=== PATIENT | female | born 1955 | race American Indian/Alaskan Native ===

== ENCOUNTER 2016-09-24 18:14 | Emergency (ER) | payer SELFPAY ==
[2016-09-24 23:49] VITALS: BP 125/85
--- NOTE | 2016-09-25 00:24 | Emergency Department Report ---
ED General Adult HPI - General Chief complaint: Back Pain/Injury Stated complaint: FALL/BACK PAIN Time Seen by Provider: 09/25/16 00:09 Source: patient Mode of arrival: Ambulatory Limitations: No Limitations - History of Present Illness Initial comments: Patient comes into the ER today with complaints of left buttocks pain after falling in the kitchen yesterday. Patient states that there was some chicken on the counter and she went to sit down and ended up falling on her buttocks. Patient was able to get up on her own. Patient still able to walk and bear weight to left hip but states that it is uncomfortable. Patient states that she does not believe anything is broken and denies any back pain or abdominal pain. Patient asking for something to help with the pain. Severity scale (0 -10): 6 - Related Data Home Medications Medication Instructions Recorded Confirmed Last Taken Metformin HCl [Glucophage] 1,000 mg PO BID 08/27/13 05/19/15 04/02/15 glipiZIDE [glipiZIDE ER] 5 mg PO DAILY 08/27/13 05/19/15 04/02/15 amLODIPine [Norvasc] 5 mg PO DAILY 05/15/15 05/19/15 Unknown Previous Rx's Medication Instructions Recorded Last Taken Type HYDROcodone/APAP 5-325 [Lane 1 each PO Q6HR PRN #7 tablet 05/19/15 Unknown Rx 5/325] hydrOXYzine HCL [Atarax] 25 mg PO Q6HR PRN #20 tablet 11/02/15 Unknown Rx Orphenadrine Citrate 100 mg PO BID #20 tablet.er 09/25/16 Unknown Rx traMADol [Ultram] 50 mg PO Q6HR PRN #20 tablet 09/25/16 Unknown Rx Allergies Allergy/AdvReac Type Severity Reaction Status Date / Time No Known Allergies Allergy Verified 09/24/16 18:43 ED Review of Systems ROS: Stated complaint: FALL/BACK PAIN Other details as noted in HPI Constitutional: denies: chills, fever Eyes: denies: eye pain, eye discharge, vision change ENT: denies: ear pain, throat pain Respiratory: denies: cough, shortness of breath, wheezing Cardiovascular: denies: chest pain, palpitations Endocrine: no symptoms reported Gastrointestinal: denies: abdominal pain, nausea, diarrhea Genitourinary: denies: urgency, dysuria, discharge Musculoskeletal: other (left buttocks pain). denies: back pain, joint swelling , arthralgia Skin: denies: rash, lesions Neurological: denies: headache, weakness, paresthesias Psychiatric: denies: anxiety, depression Hematological/Lymphatic: denies: easy bleeding, easy bruising ED Past Medical Hx - Past Medical History Previous Medical History?: Yes Hx Hypertension: No Hx Diabetes: Yes Additional medical history: Chronic back pain. ECZEMA - Social History Smoking Status: Never Smoker Substance Use Type: None - Medications Home Medications: Home Medications Medication Instructions Recorded Confirmed Last Taken Type Metformin HCl [Glucophage] 1,000 mg PO BID 08/27/13 05/19/15 04/02/15 History glipiZIDE [glipiZIDE ER] 5 mg PO DAILY 08/27/13 05/19/15 04/02/15 History amLODIPine [Norvasc] 5 mg PO DAILY 05/15/15 05/19/15 Unknown History HYDROcodone/APAP 5-325 [Lane 1 each PO Q6HR PRN #7 tablet 05/19/15 Unknown Rx 5/325] hydrOXYzine HCL [Atarax] 25 mg PO Q6HR PRN #20 tablet 11/02/15 Unknown Rx Orphenadrine Citrate 100 mg PO BID #20 tablet.er 09/25/16 Unknown Rx traMADol [Ultram] 50 mg PO Q6HR PRN #20 tablet 09/25/16 Unknown Rx ED Physical Exam - General Limitations: No Limitations General appearance: alert, in no apparent distress - Head Head exam: Present: atraumatic, normocephalic - Eye Eye exam: Present: normal appearance - ENT ENT exam: Present: mucous membranes moist - Neck Neck exam: Present: normal inspection - Respiratory Respiratory exam: Present: normal lung sounds bilaterally. Absent: respiratory distress - Cardiovascular Cardiovascular Exam: Present: regular rate, normal rhythm. Absent: systolic murmur, diastolic murmur, rubs, gallop - GI/Abdominal GI/Abdominal exam: Present: soft, normal bowel sounds. Absent: distended, tenderness, guarding - Extremities Exam Extremities exam: Present: normal inspection, full ROM (normal strength and normal range of motion to left hip in all directions.), tenderness (mild tenderness noted in the left posterior buttocks), normal capillary refill. Absent: pedal edema, joint swelling, calf tenderness - Back Exam Back exam: Present: normal inspection, full ROM. Absent: tenderness, muscle spasm, paraspinal tenderness, vertebral tenderness - Neurological Exam Neurological exam: Present: alert, oriented X3, CN II-XII intact, normal gait, reflexes normal. Absent: motor sensory deficit - Psychiatric Psychiatric exam: Present: normal affect, normal mood - Skin Skin exam: Present: warm, dry, intact, normal color. Absent: rash ED Course Vital Signs 09/24/16 09/24/16 18:43 23:48 Temperature 98.5 F 98.5 F Pulse Rate 72 67 Respiratory 20 18 Rate Blood Pressure 133/88 Blood Pressure 125/85 [Left] O2 Sat by Pulse 97 Oximetry ED Medical Decision Making - Medical Decision Making Patient is nontoxic and hemodynamically stable. Patient has normal examination with regards to range of motion of her hip and I'm very low suspicion for any hip fracture. Patient's tenderness seems to be more soft tissue in nature as she has no difficulty rising from sitting position and applying weight to left hip. I'll prescribe patient some mild pain medication for symptomatic relief and refer her to orthopedics for further evaluation if symptoms fail to resolve or worsen. Patient is in agreement with treatment plan a patient stable for discharge. Critical care attestation.: If time is entered above; I have spent that time in minutes in the direct care of this critically ill patient, excluding procedure time. ED Disposition Clinical Impression: Contusion of buttock, Contusion of left hip Disposition: TO HOME OR SELFCARE Is pt being admited?: No Does the pt Need Aspirin: No Condition: Good Instructions: Contusion in Adults (ED) Prescriptions: Orphenadrine Citrate 100 mg PO BID #20 tablet.er traMADol [Ultram] 50 mg PO Q6HR PRN #20 tablet PRN Reason: Pain Referrals: PRIMARY CARE, [Primary Care Provider] - 3-5 Days TARA MILLER MD [Staff Physician] - 3-5 Days Time of Disposition: 00:24
== END 2016-09-25 00:30 | disposition home or self-care (01) ==
LOC: ED 18:14
DX: S30.0XXA Contusion of lower back and pelvis, initial encounter (principal); S70.02XA Contusion of left hip, initial encounter; I10 Essential (primary) hypertension; E11.9 Type 2 diabetes mellitus without complications; W18.30XA Fall on same level, unspecified, initial encounter; Y93.9 Activity, unspecified; Y92.9 Unspecified place or not applicable; Y99.9 Unspecified external cause status
CPT/HCPCS: 82962; 99282

== ENCOUNTER 2016-11-09 12:59 | Outpatient (CLI) | payer SELFPAY ==
--- NOTE | 2016-11-09 15:23 | XRay Report ---
LEFT TOES, 2 views: History: Injury 2 weeks ago. There is normal bone mineralization. An oblique nondisplaced fracture is identified in the proximal phalanx of the great toe. This appears to be acute. There is no convincing calcified callus on today's exam. The remaining left toes are intact. No erosive joint pathology. IMPRESSION: Traumatic fracture, proximal phalanx, great toe.
== END 2016-11-09 13:00 | disposition home or self-care (01) ==
LOC: XRAY 12:59
PROVIDERS: ATTEND Orthopaedic Surgery
DX: S92.415A Nondisplaced fracture of proximal phalanx of left great toe, initial encounter for closed fracture (principal); X58.XXXA Exposure to other specified factors, initial encounter; Y93.89 Activity, other specified; Y92.89 Other specified places as the place of occurrence of the external cause; Y99.8 Other external cause status

== ENCOUNTER 2016-11-11 13:54 | Emergency (ER) | payer OTHER ==
[2016-11-11 15:09] LABS: Bilirubin,Urine NEG (Negative); Blood,Urine NEG (Negative); Ketones,Urine NEG (Negative); Leukocyte Esterase,Urine NEG (Negative); Nitrite,Urine NEG (Negative); Protein,Urine <15 mg/dL mg/dL (Negative); RBC,Urine < 1.0 /HPF (0.0-6.0); Urobilinogen,Urine < 2.0 mg/dL (<2.0)
[2016-11-11 15:14] LABS: WBC,Urine < 1.0 /HPF (0.0-6.0)
[2016-11-11 15:27] LABS: Anion Gap 21 mmol/L; Blood Urea Nitrogen 6 mg/dL (7-17); Calcium 9.9 mg/dL (8.4-10.2); Carbon Dioxide 24 mmol/L (22-30); Chloride 99.5 mmol/L (98-107); Glucose 116 mg/dL (65-100); Potassium 3.8 mmol/L (3.6-5.0); Sodium 141 mmol/L (137-145)
[2016-11-11 16:32] LABS: Hematocrit 39.7 % (30.3-42.9); Hemoglobin 12.9 gm/dl (10.1-14.3); Mean Corpuscular HGB Conc 32 % (30-34); Mean Corpuscular Hemoglobin 31 pg (28-32); Mean Corpuscular Volume 96 fl (79-97); Platelet Count 278 K/mm3 (140-440); Red Blood Count 4.14 M/mm3 (3.65-5.03); Red Cell Distribution Width 14.1 % (13.2-15.2); White Blood Count 7.8 K/mm3 (4.5-11.0)
--- NOTE | 2016-11-11 17:03 | Emergency Department Report ---
<ADRIEN ARAUJO - Last Filed: 11/15/16 07:21> ED N/V/D HPI - General Chief complaint: Nausea/Vomiting/Diarrhea Stated complaint: GENERAL ILLNESS Time Seen by Provider: 11/11/16 16:53 Source: patient Mode of arrival: Ambulatory Limitations: No Limitations - History of Present Illness Initial comments: 60-year-old female past medical history eczema, GERD, hypertension, hyperlipidemia presents with complaint of sensation of acid reflux. States that she may have had some palpitations earlier which is why she came to the ED. Patient has thick accent. States she speaks Gabonese fluently is awake alert and oriented [address] and time. Patient currently denies any chest pain or shortness of breath but does state that she has acid reflux sensation. Denies any weakness. States she has taken antacids in the past. States she has had this sensation intermittently for 2 days. I offered the patient a human resources project manager in [facility] which she states is her [place] language the patient adamantly states that she does not need a human resources project manager and can understand our conversation without any difficulty. States she experiences an intermittent burning sensation and is pointing to her epigastric region. States sensation is worse after eating. States it makes her feel slightly nauseous. Onset/Timin -: days(s) Location: epigastric Severity: moderate Associated Symptoms: denies other symptoms, nausea/vomiting - Related Data Home Medications Medication Instructions Recorded Confirmed Last Taken Metformin HCl [Glucophage] 1,000 mg PO BID 08/27/13 05/19/15 04/02/15 glipiZIDE [glipiZIDE ER] 5 mg PO DAILY 08/27/13 05/19/15 04/02/15 amLODIPine [Norvasc] 5 mg PO DAILY 05/15/15 05/19/15 Unknown Previous Rx's Medication Instructions Recorded Last Taken Type HYDROcodone/APAP 5-325 [[place] 1 each PO Q6HR PRN #7 tablet 05/19/15 Unknown Rx 5/325] hydrOXYzine HCL [Atarax] 25 mg PO Q6HR PRN #20 tablet 11/02/15 Unknown Rx Orphenadrine Citrate 100 mg PO BID #20 tablet.er 09/25/16 Unknown Rx traMADol [Ultram] 50 mg PO Q6HR PRN #20 tablet 09/25/16 Unknown Rx Aspirin EC [Aspirin Enteric Coated 81 mg PO QDAY #30 tablet. 11/11/16 Unknown Rx TAB] Famotidine [Pepcid] 20 mg PO BID PRN #60 tablet 11/11/16 Unknown Rx Mag Hydrox/Al Hydrox/Simeth 15 ml PO BID PRN #1 bottle 11/11/16 Unknown Rx [Maalox Advanced Suspension] Omeprazole Magnesium [PriLOSEC Otc] 20 mg PO QDAY #14 tablet. 11/11/16 Unknown Rx Allergies Allergy/AdvReac Type Severity Reaction Status Date / Time No Known Allergies Allergy Verified 09/24/16 18:43 ED Review of Systems ROS: Stated complaint: GENERAL ILLNESS Other details as noted in HPI ED Past Medical Hx - Past Medical History Previous Medical History?: Yes Hx Hypertension: No Hx Diabetes: Yes Additional medical history: Chronic back pain. ECZEMA - Surgical History Past Surgical History?: No - Social History Smoking Status: Unknown if ever smoked Substance Use Type: None - Medications Home Medications: Home Medications Medication Instructions Recorded Confirmed Last Taken Type Metformin HCl [Glucophage] 1,000 mg PO BID 08/27/13 05/19/15 04/02/15 History glipiZIDE [glipiZIDE ER] 5 mg PO DAILY 08/27/13 05/19/15 04/02/15 History amLODIPine [Norvasc] 5 mg PO DAILY 05/15/15 05/19/15 Unknown History HYDROcodone/APAP 5-325 [[place] 1 each PO Q6HR PRN #7 tablet 05/19/15 Unknown Rx 5/325] hydrOXYzine HCL [Atarax] 25 mg PO Q6HR PRN #20 tablet 11/02/15 Unknown Rx Orphenadrine Citrate 100 mg PO BID #20 tablet.er 09/25/16 Unknown Rx traMADol [Ultram] 50 mg PO Q6HR PRN #20 tablet 09/25/16 Unknown Rx Aspirin EC [Aspirin Enteric Coated 81 mg PO QDAY #30 tablet. 11/11/16 Unknown Rx TAB] Famotidine [Pepcid] 20 mg PO BID PRN #60 tablet 11/11/16 Unknown Rx Mag Hydrox/Al Hydrox/Simeth 15 ml PO BID PRN #1 bottle 11/11/16 Unknown Rx [Maalox Advanced Suspension] Omeprazole Magnesium [PriLOSEC Otc] 20 mg PO QDAY #14 tablet. 11/11/16 Unknown Rx ED Physical Exam - General Limitations: No Limitations General appearance: alert, in no apparent distress - Head Head exam: Present: atraumatic, normocephalic - Eye Eye exam: Present: normal appearance, PERRL, EOMI - ENT ENT exam: Present: mucous membranes moist - Neck Neck exam: Present: normal inspection, full ROM - Respiratory Respiratory exam: Present: normal lung sounds bilaterally. Absent: respiratory distress - Cardiovascular Cardiovascular Exam: Present: regular rate, normal rhythm. Absent: systolic murmur, diastolic murmur, rubs, gallop - GI/Abdominal GI/Abdominal exam: Present: soft (abdomen soft nontender nondistended on exam), normal bowel sounds - Extremities Exam Extremities exam: Present: normal inspection - Back Exam Back exam: Present: normal inspection - Neurological Exam Neurological exam: Present: alert, oriented X3, CN II-XII intact, normal gait - Psychiatric Psychiatric exam: Present: normal affect, normal mood - Skin Skin exam: Present: warm, dry, intact, normal color, other (pt has sever dry skin upper neck, face and anterior chest). Absent: rash ED Course Vital Signs 11/11/16 11/11/16 14:06 19:37 Temperature 98.4 F 98.9 F Pulse Rate 70 81 Respiratory 20 18 Rate Blood Pressure 113/66 Blood Pressure 145/79 [Left] O2 Sat by Pulse 97 94 Oximetry ED Medical Decision Making - Lab Data Result diagrams: 11/11/16 16:07 11/11/16 14:50 - Medical Decision Making a/p: GERD, PVC's 1- I discussed with pt that she has PVCs and has moderate cardiac risk stratification. Pt speaks broken Gabonese, I offered her a human resources project manager in her [place] language which she told me is Mandingo but she declined. She stated she knew enough Gabonese to understand what i was describing to her. I advised pt that if she is having palpitations that she should be evaluated by a procedure analyst. Pt stated she preferred to go home than to be admitted to the hospital for further testing and diagnostics. Pt signed out AMA. I warned of risk of and permanent disability is possible secondary to an underlying cardiac issue. 2- HEART 4 points Moderate Score (4-6 points) Risk of MACE of 12-16.6%. 3- antacids for GERD 4- Case d/w Dr. Flores before discharge. Critical care attestation.: If time is entered above; I have spent that time in minutes in the direct care of this critically ill patient, excluding procedure time. ED Disposition Disposition: DC-07 LEFT AGAINST MED ADVICE Is pt being admited?: No Does the pt Need Aspirin: No Condition: Undetermined Instructions: Chest Pain (ED), Gastroesophageal Reflux Disease (ED), Against Medical Advice (ED), Premature Ventricular Contractions (ED) Prescriptions: Aspirin EC [Aspirin Enteric Coated TAB] 81 mg PO QDAY #30 tablet. Famotidine [Pepcid] 20 mg PO BID PRN #60 tablet PRN Reason: Indigestion Mag Hydrox/Al Hydrox/Simeth [Maalox Advanced Suspension] 15 ml PO BID PRN #1 bottle PRN Reason: Indigestion Omeprazole Magnesium [PriLOSEC Otc] 20 mg PO QDAY #14 tablet. Referrals: [facility] [Provider Group] - 3-5 Days ADRIEN FERNÁNDEZ MD [Staff Physician] - 3-5 Days GISELA RIVERO MD [Staff Physician] - 3-5 Days Forms: AMA Form Time of Disposition: 18:54 <JERED GUERRA - Last Filed: 11/19/16 04:57> ED Medical Decision Making - Lab Data Result diagrams: 11/11/16 16:07 11/11/16 14:50
[2016-11-11 17:23] LABS: Alanine Aminotransferase 17 units/L (7-56); Albumin/Globulin Ratio 1.3 %; Alkaline Phosphatase 69 units/L (35-129); Amylase 59 units/L (27-131); Creatine Kinase 75 units/L (30-135); Lipase 17 units/L (13-60)
[2016-11-11 17:26] LABS: Bilirubin,Direct < 0.2 mg/dL (0-0.2)
[2016-11-11] MEDS ORDERED: ALUM-MAG HYDROX-SIMETH 200-200-20MG/5ML PO ONE (18:15)
[2016-11-11] MEDS ORDERED: PEPCID PO ONE (18:16)
[2016-11-11] MEDS ORDERED: LIDOCAINE VISCOUS 2% MM NR (18:30)
[2016-11-11 19:37] VITALS: BP 145/79
--- NOTE | 2016-11-11 20:03 | XRay Report ---
FINAL REPORT PROCEDURE: XR CHEST ROUTINE 2V TECHNIQUE: Two views of the chest are obtained HISTORY: chest pain COMPARISON: No prior studies are available for comparison. FINDINGS: The heart is normal in size. There is no focal infiltrate, pneumothorax or pleural effusion. IMPRESSION: No abnormalities are seen.
== END 2016-11-11 19:36 | disposition left against medical advice (07) ==
LOC: ED 13:54
DX: K21.9 Gastro-esophageal reflux disease without esophagitis (principal); R07.89 Other chest pain; E11.9 Type 2 diabetes mellitus without complications
CPT/HCPCS: 36415; 71020; 80048; 80074; 81001; 82150; 82550; 83690; 84484; 85025; 93005; 93010

== ENCOUNTER 2016-11-24 10:08 | Emergency (ER) | payer SELFPAY ==
--- NOTE | 2016-11-24 10:45 | Emergency Department Report ---
Stated Complaint: LEG PAIN /SHOULDER PAIN - BOTH Time Seen by Provider: 11/24/16 10:41 - HPI History of Present Illness: PT c/o indigestion. Pt states it feels like the food will not go down. PT also c/o pain in her joints and pain with walking - ROS Review of Systems: + L foot pain - pt states she was seen by a doctor and dx with a bruise PT denies chest pain - Exam Physical Exam: PT is alert and appropriate no focal weakness steady gait MSE screening note: Focused history and physical exam performed. Due to findings the following was ordered: ED Disposition for MSE Condition: Stable
[2016-11-24 11:22] LABS: Hematocrit 39.4 % (30.3-42.9); Hemoglobin 13.1 gm/dl (10.1-14.3); Mean Corpuscular HGB Conc 33 % (30-34); Mean Corpuscular Hemoglobin 32 pg (28-32); Mean Corpuscular Volume 95 fl (79-97); Platelet Count 271 K/mm3 (140-440); Red Blood Count 4.16 M/mm3 (3.65-5.03); White Blood Count 5.2 K/mm3 (4.5-11.0)
[2016-11-24 11:33] LABS: Basophils % (Auto) 0.4 % (0.0-1.8); Eosinophils % (Auto) 2.5 % (0.0-4.3)
[2016-11-24 11:43] LABS: Alanine Aminotransferase 13 units/L (7-56); Albumin 3.7 g/dL (3.9-5); Albumin/Globulin Ratio 1.1 %; Alkaline Phosphatase 61 units/L (35-129); Anion Gap 19 mmol/L; Blood Urea Nitrogen 8 mg/dL (7-17); Calcium 9.4 mg/dL (8.4-10.2); Carbon Dioxide 25 mmol/L (22-30); Creatine Kinase 64 units/L (30-135); Glucose 102 mg/dL (65-100); Potassium 3.6 mmol/L (3.6-5.0); Sodium 138 mmol/L (137-145); Total Protein 7.2 g/dL (6.3-8.2)
[2016-11-24] MEDS ORDERED: PEPCID PO ONE (13:19)
[2016-11-24 14:01] VITALS: BP 116/71
--- NOTE | 2016-11-24 15:15 | Emergency Department Report ---
Entered by RAMIRO MAZNO, acting as scribe for BRENDAN LUNA PA. ED General Adult HPI - General Chief complaint: Pain General Stated complaint: LEG PAIN /SHOULDER PAIN - BOTH Time Seen by Provider: 11/24/16 10:41 Source: patient Mode of arrival: Ambulatory Limitations: No Limitations - History of Present Illness Initial comments: 60 y/o female with a PMHx of IDDM, eczema, and chronic back pain presents to the ED c/o indigestion that began this morning. Aggravated with eating and alleviated with nothing. Describes indigestion as burning in quality. Patient states it feels like "the food will not go down". Notes Hx of similar symptoms, which she took prescribed acid reflux medication with no relief. Associated symptom includes nausea, but she denies fever, chills, abdominal pain, vomiting , diarrhea, constipation, chest pain, SOB, headache, and dizziness. In the ED, patient also c/o body aches and left hallux swelling that began 2 days ago. Patient states she injured her left hallux last week, which she was seen by an orthopedic who diagnosed her with a bruised toe. Denies left hallux pain, numbness and tingling. Rates body aches an 8/10 in severity, which she describes as aching in quality. Aggravated with movement, and alleviated with rest and immobilization. NKDA. RILEY Complaint: INDIGESTION/LT HALLUX SWELLING -: This morning Radiation: non-radiation Severity scale (0 -10): 0 Quality: burning Consistency: constant Improves with: none Worsens with: eating Associated Symptoms: denies other symptoms. denies: confusion, chest pain, cough, diaphoresis, fever/chills, headaches, loss of appetite, malaise, nausea/ vomiting, rash, seizure, shortness of breath, syncope, weakness Treatments Prior to Arrival: other (acid reflux medication) - Related Data Home Medications Medication Instructions Recorded Confirmed Last Taken Metformin HCl [Glucophage] 1,000 mg PO BID 08/27/13 05/19/15 04/02/15 glipiZIDE [glipiZIDE ER] 5 mg PO DAILY 08/27/13 05/19/15 04/02/15 amLODIPine [Norvasc] 5 mg PO DAILY 05/15/15 05/19/15 Unknown Previous Rx's Medication Instructions Recorded Last Taken Type HYDROcodone/APAP 5-325 [Brewster 1 each PO Q6HR PRN #7 tablet 05/19/15 Unknown Rx 5/325] hydrOXYzine HCL [Atarax] 25 mg PO Q6HR PRN #20 tablet 11/02/15 Unknown Rx Orphenadrine Citrate 100 mg PO BID #20 tablet.er 09/25/16 Unknown Rx traMADol [Ultram] 50 mg PO Q6HR PRN #20 tablet 09/25/16 Unknown Rx Aspirin EC [Aspirin Enteric Coated 81 mg PO QDAY #30 tablet. 11/11/16 Unknown Rx TAB] Famotidine [Pepcid] 20 mg PO BID PRN #60 tablet 11/11/16 Unknown Rx Mag Hydrox/Al Hydrox/Simeth 15 ml PO BID PRN #1 bottle 11/11/16 Unknown Rx [Maalox Advanced Suspension] Acetaminophen/Codeine [Tylenol 1 tab PO Q6H PRN #10 tab 11/24/16 Unknown Rx /Codeine # 3 tab] Cyclobenzaprine [Flexeril] 10 mg PO BID PRN #24 tablet 11/24/16 Unknown Rx Omeprazole Magnesium [PriLOSEC Otc] 20 mg PO QDAY #20 tablet. 11/24/16 Unknown Rx Ondansetron [Zofran Odt] 4 mg PO TID #30 tab.rapdis 11/24/16 Unknown Rx Allergies Allergy/AdvReac Type Severity Reaction Status Date / Time No Known Allergies Allergy Verified 09/24/16 18:43 ED Review of Systems Comment: All other systems reviewed and negative Constitutional: denies: chills, fever Eyes: denies: eye pain, eye discharge, vision change ENT: denies: ear pain, throat pain Respiratory: denies: cough, orthopnea, shortness of breath, SOB with exertion, SOB at rest, stridor, wheezing Cardiovascular: denies: chest pain, palpitations, dyspnea on exertion, orthopnea , edema, syncope, paroxysmal nocturnal dyspnea Endocrine: no symptoms reported Gastrointestinal: denies: abdominal pain, nausea, vomiting, diarrhea, constipation, hematemesis, melena, hematochezia Genitourinary: denies: urgency, dysuria, discharge Musculoskeletal: joint swelling (LT hallux). denies: back pain, arthralgia, myalgia Skin: denies: rash, lesions Neurological: denies: headache, weakness, numbness, paresthesias, confusion, abnormal gait, vertigo Psychiatric: denies: anxiety, depression Hematological/Lymphatic: denies: easy bleeding, easy bruising ED Past Medical Hx - Past Medical History Previous Medical History?: Yes Hx Hypertension: No Hx Diabetes: Yes Additional medical history: Chronic back pain. ECZEMA - Surgical History Past Surgical History?: No - Family History Family history: no significant - Social History Smoking Status: Never Smoker Substance Use Type: Prescribed - Medications Home Medications: Home Medications Medication Instructions Recorded Confirmed Last Taken Type Metformin HCl [Glucophage] 1,000 mg PO BID 08/27/13 05/19/15 04/02/15 History glipiZIDE [glipiZIDE ER] 5 mg PO DAILY 08/27/13 05/19/15 04/02/15 History amLODIPine [Norvasc] 5 mg PO DAILY 05/15/15 05/19/15 Unknown History HYDROcodone/APAP 5-325 [Brewster 1 each PO Q6HR PRN #7 tablet 05/19/15 Unknown Rx 5/325] hydrOXYzine HCL [Atarax] 25 mg PO Q6HR PRN #20 tablet 11/02/15 Unknown Rx Orphenadrine Citrate 100 mg PO BID #20 tablet.er 09/25/16 Unknown Rx traMADol [Ultram] 50 mg PO Q6HR PRN #20 tablet 09/25/16 Unknown Rx Aspirin EC [Aspirin Enteric Coated 81 mg PO QDAY #30 tablet. 11/11/16 Unknown Rx TAB] Famotidine [Pepcid] 20 mg PO BID PRN #60 tablet 11/11/16 Unknown Rx Mag Hydrox/Al Hydrox/Simeth 15 ml PO BID PRN #1 bottle 11/11/16 Unknown Rx [Maalox Advanced Suspension] Acetaminophen/Codeine [Tylenol 1 tab PO Q6H PRN #10 tab 11/24/16 Unknown Rx /Codeine # 3 tab] Cyclobenzaprine [Flexeril] 10 mg PO BID PRN #24 tablet 11/24/16 Unknown Rx Omeprazole Magnesium [PriLOSEC Otc] 20 mg PO QDAY #20 tablet. 11/24/16 Unknown Rx Ondansetron [Zofran Odt] 4 mg PO TID #30 tab.rapsonam 08/29/17 Unknown Rx ED Physical Exam - General Limitations: No Limitations General appearance: alert, in no apparent distress - Head Head exam: Present: atraumatic, normocephalic - Eye Eye exam: Present: normal appearance, PERRL, EOMI Pupils: Present: normal accommodation - ENT ENT exam: Present: normal exam, mucous membranes moist, normal external ear exam - Neck Neck exam: Present: normal inspection, full ROM. Absent: tenderness, meningismus, lymphadenopathy - Respiratory Respiratory exam: Present: normal lung sounds bilaterally. Absent: respiratory distress, wheezes, rales, rhonchi, stridor, chest wall tenderness, accessory muscle use, decreased breath sounds - Cardiovascular Cardiovascular Exam: Present: regular rate, normal rhythm, normal heart sounds. Absent: systolic murmur, diastolic murmur, rubs, gallop - GI/Abdominal GI/Abdominal exam: Present: soft, normal bowel sounds. Absent: distended, tenderness, guarding, rebound, rigid - Extremities Exam Extremities exam: Present: normal inspection, full ROM, normal capillary refill. Absent: tenderness, pedal edema, joint swelling, calf tenderness - Expanded Lower Extremity Exam Left Hip exam: Present: normal inspection, full ROM. Absent: tenderness Upper Leg exam: Present: normal inspection, full ROM. Absent: tenderness Knee exam: Present: normal inspection, full ROM. Absent: tenderness Lower Leg exam: Present: normal inspection, full ROM. Absent: tenderness Ankle exam: Present: normal inspection, full ROM. Absent: tenderness Foot/Toe exam: Present: normal inspection, full ROM. Absent: tenderness, swelling, abrasion, laceration, ecchymosis, deformity, crepidus, dislocation, erythema, amputation, puncture wound, foreign body, calcaneal tenderness, tenderness at base of 5th metatarsal, nail avulsion, subungual hematoma Neuro vascular tendon exam: Present: no vascular compromise. Absent: pulse deficit, abnormal cap refill, motor deficit, sensory deficit, tendon deficit, extremity cold to touch, pallor, abnormal 2-point discrimination, decreased fine /light touch, foot drop, peroneal nerve deficit, significant pain with passive ROM of distal joint Gait: Positive: observed and normal - Back Exam Back exam: Present: normal inspection, full ROM. Absent: tenderness, CVA tenderness (R), CVA tenderness (L), muscle spasm, paraspinal tenderness, vertebral tenderness, rash noted - Neurological Exam Neurological exam: Present: alert, oriented X3, normal gait - Psychiatric Psychiatric exam: Present: normal affect, normal mood - Skin Skin exam: Present: warm, dry, intact. Absent: rash ED Course Vital Signs 11/24/16 10:41 Temperature 97.9 F Pulse Rate 71 Respiratory 18 Rate Blood Pressure 135/69 O2 Sat by Pulse 100 Oximetry ED Medical Decision Making - Lab Data Result diagrams: 11/24/16 11:15 11/24/16 11:09 - Medical Decision Making 60 year-old female presents with indigestion and shoulder back myalgia ED course: CBC, CMP Vital signs stable patient is in no acute or respiratory distress. Discussed findings with patient about diagnoses. Discussed treatment in ED with patient Discussed with patient to apply ice to affected toe Discussed with patient to take prescribed medication as needed for pain Discussed with patient to follow up with PCP as referred, and to return to the ED if symptoms return or worsen. Patient states understanding and will follow instructions. Pt verbally states understanding and will comply to follow up. ED Disposition Clinical Impression: Myalgia Acid reflux Qualifiers: Esophagitis presence: without esophagitis Qualified Code(s): K21.9 - Gastro- esophageal reflux disease without esophagitis Disposition: DC-01 TO HOME OR SELFCARE Is pt being admited?: No Does the pt Need Aspirin: No Condition: Stable Instructions: Famotidine (By mouth), Antacid, Aluminum and Magnesium (By mouth) , Gastroesophageal Reflux Disease (ED), Heat Pack Application (ED) Additional Instructions: Make an appointment to see a primary pharmacist critical care as referred. Following instructions as discussed, Stay away from foods that worsens her acid reflux such as tomatoes, lemon, spicy foods. Prescriptions: Acetaminophen/Codeine [Tylenol /Codeine # 3 tab] 1 tab PO Q6H PRN #10 tab PRN Reason: Pain Cyclobenzaprine [Flexeril] 10 mg PO BID PRN #24 tablet PRN Reason: Muscle Spasm Omeprazole Magnesium [PriLOSEC Otc] 20 mg PO QDAY #20 tablet. Ondansetron [Zofran Odt] 4 mg PO TID #30 tab.jayden Referrals: PRIMARY CARE, [Primary Care Provider] - 3-5 Days [facility] [Outside] - 3-5 Days [facility] [Outside] - 3-5 Days [facility] [Outside] - 3-5 Days CLAUDINE RIVERA MD [Referring] - 3-5 Days MELINA DOYLE MD [Staff Physician] - 3-5 Days JARRETT SMITH MD [Staff Physician] - 3-5 Days SUNITA LEWIS MD [Staff Physician] - 3-5 Days Forms: Work/School Release Form(ED) This documentation as recorded by the JOVANY simmons JASMINE,accurately reflects the service I personally performed and the decisions made by CHERYL lee OYINLOLA A, PA.
== END 2016-11-24 14:09 | disposition home or self-care (01) ==
LOC: ED 10:08
DX: K21.9 Gastro-esophageal reflux disease without esophagitis (principal); M79.1 Myalgia; E11.9 Type 2 diabetes mellitus without complications; G89.29 Other chronic pain
CPT/HCPCS: 36415; 80053; 82550; 85025; 99283

== ENCOUNTER 2016-12-22 14:25 | Emergency (ER) | payer SELFPAY ==
--- NOTE | 2016-12-22 15:14 | Emergency Department Report ---
Chief Complaint: Pain General Stated Complaint: BILAT SHOULDER PAIN Time Seen by Provider: 12/22/16 15:12 - HPI History of Present Illness: PT states she is having joint pain - ROS Review of Systems: + arthralgia - Exam Vital Signs: Vital Signs 12/22/16 15:08 Temperature 97.9 F Pulse Rate 83 Respiratory 18 Rate Blood Pressure 123/62 O2 Sat by Pulse 100 Oximetry Physical Exam: PT looks well maew steady gait MSE screening note: Focused history and physical exam performed. Due to findings the following was ordered: ED Disposition for MSE Condition: Stable
[2016-12-22] MEDS ORDERED: NORCO 5/325 PO ONE (20:11)
[2016-12-22] MEDS ORDERED: FLEXERIL PO ONE (20:11)
[2016-12-22] MEDS ORDERED: MOTRIN PO ONE (20:11)
--- NOTE | 2016-12-22 21:42 | Emergency Department Report ---
ED Extremity Problem HPI - General Chief complaint: Pain General Stated complaint: BILAT SHOULDER PAIN Time Seen by Provider: 12/22/16 15:12 Source: patient Mode of arrival: Ambulatory Limitations: No Limitations - History of Present Illness Initial comments: 61 year old female presents to ED with bilateral shoulder pain x2 days. patient denies injury, trauma, fall. patient is stable, neurologically intact and in no acute distress. patient is ambulatory with normal observed gait. patient has full ROM of bilateral shoulders. MD Complaint: extremity pain, joint paint -: Gradual, days(s) (2) Location: left, right, upper extremity History of Same: Yes -: Yes arthralgia Radiation: none Severity scale (0 -10): 10 Quality: aching Consistency: constant Improves with: medication Worsens with: exertion Associated Symptoms: denies: chest pain, shortness of breath, fever, myalgias, arthralgias, rash - Related Data Home Medications Medication Instructions Recorded Confirmed Last Taken Metformin HCl [Glucophage] 1,000 mg PO BID 08/27/13 12/22/16 04/02/15 glipiZIDE [glipiZIDE ER] 5 mg PO DAILY 08/27/13 12/22/16 04/02/15 Previous Rx's Medication Instructions Recorded Last Taken Type HYDROcodone/APAP 5-325 [Kinta 1 each PO Q6HR PRN #7 tablet 05/19/15 Unknown Rx 5/325] Cyclobenzaprine [Flexeril] 10 mg PO BID PRN #24 tablet 11/24/16 Unknown Rx Cyclobenzaprine [Flexeril] 10 mg PO BID PRN #14 tablet 12/22/16 Unknown Rx Ibuprofen [Motrin] 800 mg PO Q8HR PRN #21 tablet 12/22/16 Unknown Rx Lisinopril [Zestril TAB] 10 mg PO QDAY #30 tablet 12/22/16 Unknown Rx Metformin HCl [Glucophage] 1,000 mg PO BID #60 tablet 12/22/16 Unknown Rx glipiZIDE [glipiZIDE ER] 5 mg PO QAM #30 tab.er.24 12/22/16 Unknown Rx Allergies Allergy/AdvReac Type Severity Reaction Status Date / Time No Known Allergies Allergy Verified 09/24/16 18:43 ED Review of Systems ROS: Stated complaint: BILAT SHOULDER PAIN Other details as noted in HPI Constitutional: denies: chills, fever Eyes: denies: eye pain, eye discharge, vision change ENT: denies: ear pain, throat pain Respiratory: denies: cough, shortness of breath, wheezing Cardiovascular: denies: chest pain, palpitations Endocrine: no symptoms reported Gastrointestinal: denies: abdominal pain, nausea, diarrhea Genitourinary: denies: urgency, dysuria, discharge Musculoskeletal: arthralgia. denies: back pain, joint swelling Skin: denies: rash, lesions Neurological: denies: headache, weakness, paresthesias Psychiatric: denies: anxiety, depression Hematological/Lymphatic: denies: easy bleeding, easy bruising ED Past Medical Hx - Past Medical History Hx Hypertension: No Hx Diabetes: Yes Additional medical history: Chronic back pain. ECZEMA - Surgical History Past Surgical History?: No - Social History Smoking Status: Never Smoker Substance Use Type: None - Medications Home Medications: Home Medications Medication Instructions Recorded Confirmed Last Taken Type Metformin HCl [Glucophage] 1,000 mg PO BID 08/27/13 12/22/16 04/02/15 History glipiZIDE [glipiZIDE ER] 5 mg PO DAILY 08/27/13 12/22/16 04/02/15 History HYDROcodone/APAP 5-325 [Kinta 1 each PO Q6HR PRN #7 tablet 05/19/15 12/22/16 Unknown Rx 5/325] Cyclobenzaprine [Flexeril] 10 mg PO BID PRN #24 tablet 11/24/16 12/22/16 Unknown Rx Cyclobenzaprine [Flexeril] 10 mg PO BID PRN #14 tablet 12/22/16 Unknown Rx Ibuprofen [Motrin] 800 mg PO Q8HR PRN #21 tablet 12/22/16 Unknown Rx Lisinopril [Zestril TAB] 10 mg PO QDAY #30 tablet 12/22/16 Unknown Rx Metformin HCl [Glucophage] 1,000 mg PO BID #60 tablet 12/22/16 Unknown Rx glipiZIDE [glipiZIDE ER] 5 mg PO QAM #30 tab.er.24 12/22/16 Unknown Rx ED Physical Exam - General Limitations: No Limitations General appearance: alert, in no apparent distress - Head Head exam: Present: atraumatic, normocephalic - Eye Eye exam: Present: normal appearance, EOMI - ENT ENT exam: Present: normal exam, mucous membranes moist - Neck Neck exam: Present: normal inspection, full ROM. Absent: tenderness - Respiratory Respiratory exam: Present: normal lung sounds bilaterally. Absent: respiratory distress, wheezes, rales, rhonchi - Cardiovascular Cardiovascular Exam: Present: regular rate, normal rhythm. Absent: systolic murmur, diastolic murmur, rubs, gallop - GI/Abdominal GI/Abdominal exam: Present: soft, normal bowel sounds. Absent: distended, tenderness, guarding, rebound - Extremities Exam Extremities exam: Present: normal inspection, full ROM, tenderness (mild tenderness to superior portion of bilateral shoulder joints) - Back Exam Back exam: Present: normal inspection - Neurological Exam Neurological exam: Present: alert, oriented X3, normal gait - Psychiatric Psychiatric exam: Present: normal affect, normal mood - Skin Skin exam: Present: warm, dry, intact, normal color. Absent: rash ED Course Vital Signs 12/22/16 12/22/16 12/22/16 15:08 20:19 23:06 Temperature 97.9 F 98.7 F Pulse Rate 83 66 Respiratory 18 18 18 Rate Blood Pressure 123/62 Blood Pressure 120/58 [Right] O2 Sat by Pulse 100 98 Oximetry ED Medical Decision Making - Radiology Data Radiology results: report reviewed XR right shoulder NO fracture or dislocation. no arthritic changes seen. XR left shoulder NO fracture or dislocation. mild arthritic changes in the left shoulder. - Medical Decision Making 61 year old female presents to ED with bilateral shoulder pain. patient has mild arthritic changes on left shoulder imaging. patient states pain has resolved after ED medications. patient is stable, neurologically intact and in no acute distress. patient states she would also like refills of HTN and DM medications. I will refill medications for 30 days and patient agrees and understands that she needs to return to PCP for further evaluation within 2-3 days. Critical care attestation.: If time is entered above; I have spent that time in minutes in the direct care of this critically ill patient, excluding procedure time. ED Disposition Clinical Impression: Arthritis pain of shoulder Disposition: TO HOME OR SELFCARE Is pt being admited?: No Does the pt Need Aspirin: No Condition: Stable Instructions: Osteoarthritis (ED) Prescriptions: Cyclobenzaprine [Flexeril] 10 mg PO BID PRN #14 tablet PRN Reason: Muscle Spasm glipiZIDE [glipiZIDE ER] 5 mg PO QAM #30 tab.er.24 Ibuprofen [Motrin] 800 mg PO Q8HR PRN #21 tablet PRN Reason: Pain Lisinopril [Zestril TAB] 10 mg PO QDAY #30 tablet Metformin HCl [Glucophage] 1,000 mg PO BID #60 tablet Referrals: PRIMARY CARE, [Primary Care Provider] - 3-5 Days
--- NOTE | 2016-12-22 21:54 | XRay Report ---
FINAL REPORT PROCEDURE: XR SHOULDER BILAT 2+V TECHNIQUE: Three views of the bilateral shoulders are obtained HISTORY: shoulder pain, evaluate for arthritis COMPARISON: No prior studies are available for comparison. FINDINGS: Left shoulder: No fracture or dislocation is seen. Two small calcifications are seen adjacent to inferior aspect of the bony glenoid. These are likely or arthritic calcifications. Likely minimal osteophyte formation is seen associated with the medial aspect of the left humeral head and in the AC joint. Right shoulder: No fracture or dislocation is seen. No arthritic changes are seen. IMPRESSION: No right shoulder abnormality is seen but there are mild arthritic changes in the left shoulder.
[2016-12-22 23:08] VITALS: BP 120/58
== END 2016-12-22 23:12 | disposition home or self-care (01) ==
LOC: ED 14:25
DX: M25.511 Pain in right shoulder (principal); M25.512 Pain in left shoulder; I10 Essential (primary) hypertension; E11.9 Type 2 diabetes mellitus without complications; G89.29 Other chronic pain
CPT/HCPCS: 99283

== ENCOUNTER 2017-01-18 09:51 | Emergency (ER) | payer OTHER ==
[2017-01-18 11:13] VITALS: BP 125/60
--- NOTE | 2017-01-18 11:36 | Emergency Department Report ---
Chief Complaint: Extremity Problem,Nontraumatic Stated Complaint: LEG PAIN Time Seen by Provider: 01/18/17 11:36 - HPI History of Present Illness: Patient here reports that she had cold symptoms that's been ongoing. Patient is very emotional and that she stressed out. She is also complaining of pain in her feet and she says she has diabetes. Denies any nausea or vomiting. Denies any chest pain. She reports cough, nasal congestion and runny nose. Denies any history of heart disease and reported that she had heart workup at [facility] and he said everything was fine. - ROS Review of Systems: All systems are negative unless stated in HPI above - Exam Vital Signs: Vital Signs 01/18/17 11:10 Temperature 98.2 F Pulse Rate 71 Respiratory 16 Rate Blood Pressure 125/60 O2 Sat by Pulse 97 Oximetry Physical Exam: Gen.: This is a 61-year-old female that is nontoxic in appearance. Lungs: Dry cough, clear to auscultate bilaterally, rhonchi wheezes or rales. MSE screening note: Focused history and physical exam performed. Due to findings the following was ordered: ED Medical Decision Making - Medical Decision Making MDM: Patient screened by provider in triage area. Appropriate protocol initiated and patient to be seen in main ED by ED Disposition for MSE Condition: Stable
--- NOTE | 2017-01-18 12:29 | XRay Report ---
ROUTINE CHEST, TWO VIEWS: HISTORY: Cough. The trachea, heart, mediastinal contour, lung cheng and bony thorax are unremarkable. IMPRESSION: Unremarkable chest x-ray. No significant change since 11/11/16.
--- NOTE | 2017-01-18 14:36 | Emergency Department Report ---
HPI - General Chief Complaint: Upper Respiratory Infection Time Seen by Provider: 01/18/17 11:36 - HPI HPI: Patient is a 61-year-old female with a history of hypertention, diabetes and arthritis who presents to ED complaining arthritic joint pain times a couple of days. Patient states she does not take any medications for arthritis but is in a lot of pain in her knee joints. Patient also complains of throbbing ache in bilateral leg pain. She denies suicidal shoes/nausea/vomiting/abdominal pain/chest pain/shortness of breath. No other problems. ED Past Medical Hx - Past Medical History Previous Medical History?: Yes Hx Hypertension: No Hx Diabetes: Yes Additional medical history: Chronic back pain. ECZEMA - Surgical History Past Surgical History?: No - Social History Smoking Status: Never Smoker Substance Use Type: None - Medications Home Medications: Home Medications Medication Instructions Recorded Confirmed Last Taken Type Metformin HCl [Glucophage] 1,000 mg PO BID 08/27/13 12/22/16 04/02/15 History glipiZIDE [glipiZIDE ER] 5 mg PO DAILY 08/27/13 12/22/16 04/02/15 History Cyclobenzaprine [Flexeril 10 MG 10 mg PO BID PRN #24 tablet 11/24/16 12/22/16 Unknown Rx TAB] Cyclobenzaprine [Flexeril] 10 mg PO BID PRN #14 tablet 12/22/16 Unknown Rx Ibuprofen [Motrin] 800 mg PO Q8HR PRN #21 tablet 12/22/16 Unknown Rx HYDROcodone/APAP 5-325 [[place] 1 each PO Q6HR PRN #7 tablet 01/18/17 Unknown Rx 5-325 mg TAB] Lisinopril [Zestril TAB] 10 mg PO QDAY #30 tablet 01/18/17 Unknown Rx Metformin HCl [Glucophage] 1,000 mg PO BID #60 tablet 01/18/17 Unknown Rx glipiZIDE [glipiZIDE ER] 5 mg PO QAM #30 tab.er.24 01/18/17 Unknown Rx ED Review of Systems ROS: Stated complaint: LEG PAIN Other details as noted in HPI Constitutional: denies: chills, fever Eyes: denies: eye pain, eye discharge, vision change ENT: denies: ear pain, throat pain Respiratory: denies: cough, shortness of breath, wheezing Cardiovascular: denies: chest pain, palpitations Endocrine: no symptoms reported Gastrointestinal: denies: abdominal pain, nausea, diarrhea Genitourinary: denies: urgency, dysuria, discharge Musculoskeletal: denies: back pain, joint swelling, arthralgia Skin: denies: rash, lesions Neurological: denies: headache, weakness, paresthesias Psychiatric: denies: anxiety, depression Hematological/Lymphatic: denies: easy bleeding, easy bruising Physical Exam - Physical Exam Vital Signs: Vital Signs 01/18/17 11:10 Temperature 98.2 F Pulse Rate 71 Respiratory 16 Rate Blood Pressure 125/60 O2 Sat by Pulse 97 Oximetry Physical Exam: GENERAL: Alert and oriented x3, no apparent distress, Normal Gait, atraumatic. HEAD: Head is normocephalic and a-traumatic. NECK: Supple. Non edematous, No carotid bruits. No lymphadenopathy or thyromegaly. No C-spine tenderness LUNGS: Symetrical with respiration, No wheezing, no rales or crackles, CTAB. HEART: S1, S2 present, regular rate and rhythm without murmur, no rubs, no gallops. Non tender to palpation BACK: Full range of motion, no spinal tenderness, nontender to palpation. EXTREMITIES/MUSCULOSKELETAL: No cyanosis, clubbing, rash, lesions or edema. Full ROM bilaterally. UE/LE Pulses 2+ bilaterally. LE and UE 5+ strength bilaterally, straight leg raise negative bilaterally, Homans sign negative, because nontender to palpation. Non-edematous, all joints are intact no swelling. Mild pain with range of motion of the knee joints NEUROLOGIC: The patient is cooperative with no focal neurologic deficits. Cranial nerves II through XII are grossly intact. Normal speech. Normal sensation in bilateral upper and lower extremities, No loss of sensation, SKIN: Warm and dry, No lesions, No ulceration or induration present. ED Course Vital Signs 01/18/17 11:10 Temperature 98.2 F Pulse Rate 71 Respiratory 16 Rate Blood Pressure 125/60 O2 Sat by Pulse 97 Oximetry ED Medical Decision Making - Radiology Data Radiology results: report reviewed, image reviewed Ordering Physician: AI MCKENZIE Date of Service: 01/18/17 Procedure(s): XR chest routine 2V Accession Number(s): [id number] cc: AI MCKENZIE Fluoro Time In Minutes: ROUTINE CHEST, TWO VIEWS: HISTORY: Cough. The trachea, heart, mediastinal contour, lung cheng and bony thorax are unremarkable. IMPRESSION: Unremarkable chest x-ray. No significant change since 11/11/16. Transcribed By: TTR Dictated By: JAROCHO HAMILTON JR, MD Electronically Authenticated By: JAROCHO HAMILTON JR, MD Signed Date/Time: 01/18/17 1226 - Medical Decision Making 61-year-old female present with joint arthritic pain ED course: Patient received [place] tablets and ED She denies any other symptoms she is neurologically intact Discussed with the patient as requested that I will go ahead and refill her blood pressure and diabetes medications and to follow-up with her primary care physician. Primary care physician referral is given discussed the patient to medication. As soon as she can. Patient agrees and states she understands instructions are given to her and will follow-up with the primary care as referred Vital signs normalized patient is in no acute distress she reports feeling much better Critical care attestation.: If time is entered above; I have spent that time in minutes in the direct care of this critically ill patient, excluding procedure time. ED Disposition Clinical Impression: Arthritis, Arthralgia of both knees Disposition: DC-01 TO HOME OR SELFCARE Is pt being admited?: No Does the pt Need Aspirin: No Condition: Stable Instructions: Naproxen (By mouth), Osteoarthritis (ED), Arthralgia (ED) Prescriptions: glipiZIDE [glipiZIDE ER] 5 mg PO QAM #30 tab.er.24 HYDROcodone/APAP 5-325 [[place] 5-325 mg TAB] 1 each PO Q6HR PRN #7 tablet PRN Reason: Pain Lisinopril [Zestril TAB] 10 mg PO QDAY #30 tablet Metformin HCl [Glucophage] 1,000 mg PO BID #60 tablet Referrals: PRIMARY CARE, [Primary Care Provider] - 3-5 Days [facility] [Outside] - 3-5 Days [facility] [Outside] - 3-5 Days [facility] [Outside] - 3-5 Days CLAUDINE RIVERA MD [Referring] - 3-5 Days DAVID VERGARA MD [Staff Physician] - 3-5 Days GURPREET KWON MD [Referring] - 3-5 Days Forms: Accompanied Note, Work/School Release Form(ED) Time of Disposition: 15:30
[2017-01-18] MEDS ORDERED: NORCO 5/325 PO ONE (14:52)
== END 2017-01-18 15:34 | disposition home or self-care (01) ==
LOC: ED 09:51
DX: M17.0 Bilateral primary osteoarthritis of knee (principal); M25.561 Pain in right knee; M25.562 Pain in left knee; I10 Essential (primary) hypertension; E11.9 Type 2 diabetes mellitus without complications; G89.29 Other chronic pain
CPT/HCPCS: 71020; 99283

== ENCOUNTER 2017-09-10 18:50 | Emergency (ER) | payer SELFPAY ==
[2017-09-10 20:40] VITALS: BP 135/56
[2017-09-10 21:17] LABS: Basophils % (Auto) 0.3 % (0.0-1.8); Eosinophils # (Auto) 0.2 K/mm3 (0.0-0.4); Eosinophils % (Auto) 2.6 % (0.0-4.3); Hematocrit 37.9 % (30.3-42.9); Hemoglobin 12.3 gm/dl (10.1-14.3); Lymphocytes # (Auto) 2.1 K/mm3 (1.2-5.4); Mean Corpuscular HGB Conc 32 % (30-34); Mean Corpuscular Hemoglobin 30 pg (28-32); Mean Corpuscular Volume 93 fl (79-97); Monocytes # (Auto) 0.6 K/mm3 (0.0-0.8); Monocytes % (Auto) 9.5 % (0.0-7.3); Platelet Count 261 K/mm3 (140-440); Red Blood Count 4.07 M/mm3 (3.65-5.03); Red Cell Distribution Width 14.4 % (13.2-15.2)
[2017-09-10 21:29] LABS: BUN/Creatinine Ratio 18; Blood Urea Nitrogen 9 mg/dL (7-17); Calcium 9.6 mg/dL (8.4-10.2); Hemolysis Index 6
[2017-09-10 21:40] LABS: Bilirubin,Urine NEG (Negative); Blood,Urine NEG (Negative); Color,Urine Yellow (Yellow); Protein,Urine <15 mg/dL mg/dL (Negative); Urobilinogen,Urine < 2.0 mg/dL (<2.0); WBC,Urine < 1.0 /HPF (0.0-6.0)
--- NOTE | 2017-09-10 22:16 | Emergency Department Report ---
ED General Adult HPI - General Chief complaint: Back Pain/Injury Stated complaint: BODY PAIN/DM 2 Time Seen by Provider: 09/10/17 22:09 Source: patient Mode of arrival: Ambulatory Limitations: No Limitations - History of Present Illness Initial comments: Patient's a 61-year-old -[place] female history of hypertension and diabetes patient presents today for right hip pain for 102 weeks history of same for 10 years generally treated with ibuprofen 800 by mouth when necessary patient states just refilled ibuprofen today patient denies fall or injury or trauma so she just came in today for a checkup pain is 4/10 and aching exacerbated by prolonged standing walking bending twisting and deep breathing patient denies dysuria no hematuria no frequency or urgency Radiation: non-radiation Severity scale (0 -10): 4 Quality: aching Consistency: intermittent Improves with: rest Worsens with: movement, other (prolonged sitting ) Treatments Prior to Arrival: none - Related Data Home Medications Medication Instructions Recorded Confirmed Last Taken Metformin HCl [Glucophage] 1,000 mg PO BID 08/27/13 12/22/16 04/02/15 glipiZIDE [glipiZIDE ER] 5 mg PO DAILY 08/27/13 12/22/16 04/02/15 Previous Rx's Medication Instructions Recorded Last Taken Type Cyclobenzaprine [Flexeril 10 MG 10 mg PO BID PRN #24 tablet 11/24/16 Unknown Rx TAB] Cyclobenzaprine [Flexeril] 10 mg PO BID PRN #14 tablet 12/22/16 Unknown Rx Ibuprofen [Motrin] 800 mg PO Q8HR PRN #21 tablet 12/22/16 Unknown Rx HYDROcodone/APAP 5-325 [[place] 1 each PO Q6HR PRN #7 tablet 01/18/17 Unknown Rx 5-325 mg TAB] Lisinopril [Zestril TAB] 10 mg PO QDAY #30 tablet 01/18/17 Unknown Rx Metformin HCl [Glucophage] 1,000 mg PO BID #60 tablet 01/18/17 Unknown Rx glipiZIDE [glipiZIDE ER] 5 mg PO QAM #30 tab.er.24 01/18/17 Unknown Rx Menthol/Camphor [[place] 1 applic TP BID PRN #1 tube 09/10/17 Unknown Rx Ointment] Ranitidine HCl [Zantac 150 MG TAB] 150 mg PO BID #60 tablet 09/10/17 Unknown Rx Allergies Allergy/AdvReac Type Severity Reaction Status Date / Time No Known Allergies Allergy Verified 01/18/17 11:13 ED Review of Systems ROS: Stated complaint: BODY PAIN/DM 2 Other details as noted in HPI Constitutional: denies: chills, fever Eyes: denies: eye pain, eye discharge, vision change ENT: denies: ear pain, throat pain Respiratory: denies: cough, shortness of breath, wheezing Cardiovascular: denies: chest pain, palpitations Endocrine: no symptoms reported Gastrointestinal: denies: abdominal pain, nausea, diarrhea Genitourinary: as per HPI Musculoskeletal: arthralgia, myalgia. denies: back pain, joint swelling Skin: denies: rash, lesions Neurological: denies: headache, weakness, paresthesias Psychiatric: denies: anxiety, depression Hematological/Lymphatic: denies: easy bleeding, easy bruising ED Past Medical Hx - Past Medical History Previous Medical History?: Yes Hx Hypertension: No Hx Diabetes: Yes Additional medical history: Chronic back pain. ECZEMA - Surgical History Past Surgical History?: No - Social History Smoking Status: Never Smoker Substance Use Type: None - Medications Home Medications: Home Medications Medication Instructions Recorded Confirmed Last Taken Type Metformin HCl [Glucophage] 1,000 mg PO BID 08/27/13 12/22/16 04/02/15 History glipiZIDE [glipiZIDE ER] 5 mg PO DAILY 08/27/13 12/22/16 04/02/15 History Cyclobenzaprine [Flexeril 10 MG 10 mg PO BID PRN #24 tablet 11/24/16 12/22/16 Unknown Rx TAB] Cyclobenzaprine [Flexeril] 10 mg PO BID PRN #14 tablet 12/22/16 Unknown Rx Ibuprofen [Motrin] 800 mg PO Q8HR PRN #21 tablet 12/22/16 Unknown Rx HYDROcodone/APAP 5-325 [[place] 1 each PO Q6HR PRN #7 tablet 01/18/17 Unknown Rx 5-325 mg TAB] Lisinopril [Zestril TAB] 10 mg PO QDAY #30 tablet 01/18/17 Unknown Rx Metformin HCl [Glucophage] 1,000 mg PO BID #60 tablet 01/18/17 Unknown Rx glipiZIDE [glipiZIDE ER] 5 mg PO QAM #30 tab.er.24 01/18/17 Unknown Rx Menthol/Camphor [[place] 1 applic TP BID PRN #1 tube 09/10/17 Unknown Rx Ointment] Ranitidine HCl [Zantac 150 MG TAB] 150 mg PO BID #60 tablet 09/10/17 Unknown Rx ED Physical Exam - General Limitations: No Limitations General appearance: alert, in no apparent distress - Head Head exam: Present: atraumatic, normocephalic - Eye Eye exam: Present: normal appearance - ENT ENT exam: Present: mucous membranes moist - Neck Neck exam: Present: normal inspection - Respiratory Respiratory exam: Present: normal lung sounds bilaterally. Absent: respiratory distress - Cardiovascular Cardiovascular Exam: Present: regular rate, normal rhythm. Absent: systolic murmur, diastolic murmur, rubs, gallop - GI/Abdominal GI/Abdominal exam: Present: soft, normal bowel sounds - Rectal Rectal exam: Present: deferred - Extremities Exam Extremities exam: Present: normal inspection - Expanded Lower Extremity Exam Right Hip exam: Present: full ROM, pelvic stability. Absent: tenderness, swelling, abrasion, laceration, ecchymosis, deformity, crepidus, dislocation, erythema, external rotation, internal rotation, shortening Upper Leg exam: Present: normal inspection, full ROM Knee exam: Present: normal inspection, full ROM Lower Leg exam: Present: normal inspection, full ROM Ankle exam: Present: normal inspection, full ROM Foot/Toe exam: Present: normal inspection, full ROM Neuro vascular tendon exam: Present: no vascular compromise, pulse deficit, abnormal cap refill, motor deficit, sensory deficit, tendon deficit, extremity cold to touch, pallor, abnormal 2-point discrimination, decreased fine/light touch, foot drop, peroneal nerve deficit, significant pain with passive ROM of distal joint Gait: Positive: observed and limited by pain - Back Exam Back exam: Present: normal inspection, full ROM. Absent: tenderness, CVA tenderness (R), CVA tenderness (L), muscle spasm, paraspinal tenderness, vertebral tenderness - Neurological Exam Neurological exam: Present: alert, oriented X3, CN II-XII intact, normal gait, reflexes normal. Absent: motor sensory deficit - Psychiatric Psychiatric exam: Present: normal affect, normal mood - Skin Skin exam: Present: warm, dry, intact, normal color. Absent: rash ED Course Vital Signs 09/10/17 19:54 Temperature 99.0 F Pulse Rate 74 Blood Pressure 135/56 O2 Sat by Pulse 99 Oximetry ED Medical Decision Making - Lab Data Result diagrams: 09/10/17 20:58 09/10/17 20:58 - Medical Decision Making There is no deformity no point tenderness no bursitis range of motion intact no restriction no catch no click no pop no deformity patient is now ambulatory gait is steady no lip this is likely arthralgia patient has ibuprofen in her possession at this time plan [place] balm hip exercises moist heat therapy and follow up with [facility] in 2-3 days. Critical care attestation.: If time is entered above; I have spent that time in minutes in the direct care of this critically ill patient, excluding procedure time. ED Disposition Clinical Impression: Arthralgia Qualifiers: Joint pain location: hip Laterality: right Qualified Code(s): M25.551 - Pain in right hip Disposition: DC- TO HOME OR SELFCARE Is pt being admited?: No Does the pt Need Aspirin: No Condition: Good Instructions: Arthralgia (ED) Prescriptions: Menthol/Camphor [[place] Ointment] 1 applic TP BID PRN #1 tube PRN Reason: Pain Ranitidine HCl [Zantac 150 MG TAB] 150 mg PO BID #60 tablet Referrals: PRIMARY CARE, [Primary Care Provider] - 3-5 Days Forms: Work/School Release Form(ED) Time of Disposition: 22:19
== END 2017-09-10 22:30 | disposition home or self-care (01) ==
LOC: ED 18:50
DX: M25.551 Pain in right hip (principal); E11.9 Type 2 diabetes mellitus without complications; G89.29 Other chronic pain; Z79.84 Long term (current) use of oral hypoglycemic drugs
CPT/HCPCS: 36415; 80048; 81001; 82962; 85025; 87086